=== PATIENT | female | born 2005 | race Caucasian/White ===

== ENCOUNTER 2024-12-08 10:15 | Emergency (ER) | payer OTHER, SELFPAY ==
[2024-12-08 10:26] VITALS: BP 133/93; PULSE 95; RESP 18; TEMP 36.7; O2SAT 100
--- NOTE | 2024-12-08 10:36 | ED.URI ---
HPI - URI/Sore Throat General Chief Complaint: Ear Stated Complaint: Sinus Pressure/Left Ear Problem/Chest Congestion Time Seen by Provider: 12/08/24 10:36 Source: patient, RN notes reviewed and old records reviewed Mode of arrival: ambulatory Limitations: no limitations History of Present Illness HPI Narrative: 19 [facility] complaints of sinus pressure and congestion for approximately 2 month. Patient states that for the past 2 weeks she has had sore throat and now ear pain with cough which increases at night. Patient reports facial pressure and some frontal headache. Patient reports that she has taken OTC nasal spray and has been using Sudafed for her sinus congestion. Patient reports that on Friday she had nausea and vomiting and did have fevers then which lasted into Friday but no fever since. MD elicited complaint: cough, sore throat, rhinorrhea, nasal congestion, sinus pain and other (headache) Onset (ago): week(s) (2) Severity: moderate Able to tolerate fluids by mouth: Yes Treatments prior to arrival: other (nasal spray, Sudafed) Related Data Allergies Allergy/AdvReac Type Severity Reaction Status Date / Time No Known Allergies Allergy Verified 12/08/24 10:31 Review of Systems Review of Systems: CONSTITUTIONAL: Reports malaise, chills, sweats, or fever on Friday and Friday none since EYES: Denies visual changes, redness, or discharge. ENT: Reports rhinorrhea, congestion, sinus pain,bilateral otalgia and positive sore throat. CARDIOVASCULAR: Denies chest pain, palpitations, or edema. RESPIRATORY: Reports cough increased at night.? Denies dyspnea. GASTROINTESTINAL: Denies abdominal pain, nausea, vomiting, diarrhea SKIN: Denies rash or itching. MUSCULOSKELETAL: Denies myalgia. NEUROLOGIC: reports frontal headache. All systems reviewed & are unremarkable except as noted in HPI and below PMFSH Social History Social History (Updated 12/10/24 @ 09:14 by Sondra Frazier NP) Smoking status: Never smoker Alcohol intake: current Alcohol use details: social Substance use type: does not use Living arrangements: with family Gender identity (if verbalized by the patient): Female Comments At time of signature, agree with nursing past medical, surgical, social and family history. There is no relevant family history pertinent to the presenting complaint Exam Narrative: GENERAL: Well-appearing, well-nourished, and in no acute distress. HEAD: Normocephalic EYES: PERRLA, conjunctivae clear ENT: Nares clear, turbinates edematous and erythematous, clear discharge sinus pressure with frontal headache. Mucous membranes moist. TM pearly rock with dull light reflex bilaterally; no tragal tenderness. Oropharynx erythematous without lesions. Tonsils not enlarged and without exudate, no drooling, no hoarseness, no trismus, uvula midline.post nasal drainage NECK: Supple. No lymphadenopathy CHEST: Clear to auscultation, breath sounds equal. No wheezing, rhonchi, rales, or stridor. No respiratory distress, speaks in full sentences. cough increased at night, SAO2 100%on room air HEART: Regular rate and rhythm. No murmur heard. SKIN: Warm, dry, no rash. NEURO: Alert and oriented x3. PSYCH: Normal mood and affect Course Course Emergency Course: Patient is aware of diagnosis, understands and agrees to treatment plan.? Anticipatory guidance given.? Patient agrees to follow-up as directed and is aware of reasons to seek care at the emergency department. Portions of this record may have been created with voice recognition software Level of Care: Express Care Visit Vital Signs Vital signs: Vital Signs Temperature 36.7 C 12/08/24 10:26 Pulse Rate 95 12/08/24 10:26 Respiratory Rate 18 12/08/24 10:26 Blood Pressure 133/93 H 12/08/24 10:26 Pulse Oximetry 100 12/08/24 10:26 Oxygen Delivery Room Air 12/08/24 10:26 Temperature 36.7 C 12/08/24 10:26 Pulse Rate 95 12/08/24 10:26 Respiratory Rate 18 12/08/24 10:26 Blood Pressure 133/93 H 12/08/24 10:26 Pulse Oximetry 100 12/08/24 10:26 Oxygen Delivery Room Air 12/08/24 10:26 Reviewed MDM - URI/Sore Throat MDM Narrative Medical decision making narrative: Differential diagnosis considered: Noland virus, strep pharyngitis, allergic rhinitis, upper respiratory tract infection, sinusitis, rhinosinusitis, nasopharyngitis. viral pharyngitis, otitis media, otitis externa, pneumonia, bronchitis, viral cough syndrome, viral syndrome, and influenza.? Exam findings show no acute concerns or changes; patient is non-toxic appearing and is in no distress.? Patient is appropriate for outpatient treatment and follow-up. Differential Diagnosis Differential diagnosis: Likely upper respiratory infection, otitis media, sinusitis, viral infection, pharyngitis and other Medical Records Attestation: I reviewed the patient's medical records. Lab Data Attestation: I reviewed the patient's lab results. Critical Care Time Critical Care Time Critical Care Time: No Discharge Plan Discharge Clinical Impression: Otalgia of both ears Sinusitis Qualifiers: Sinusitis location: pansinusitis Chronicity: acute Recurrence: not specified as recurrent Qualified Code(s): J01.40 - Acute pansinusitis, unspecified Patient Disposition: Home, Self-Care Condition: Stable Instructions: Sinusitis (ED) Additional Instructions: Increase fluids especially juices and water [id number] cough and cold medicine of your choice for your symptoms Zyrtec Claritin or Gabriela daily include decongestant such as Sudafed in a.m .nasal saline and gently blow nose and then use Flonase daily, may use nasal saline as needed Steroids as directed--take with food heat to the face 20-30 minutes 4-6 times a day for pain Salt water gargles, throat lozenges or throat sprays as desired Antibiotic as directed--finished the medication If your symptoms persist, change or worsen significantly before you can contact your personal physician then please, without delay, go to the emergency department for further evaluation. Follow-up with PCP in 7-10 days or sooner if needed Follow up with PCP soon in regards to your blood pressure which is elevated above threshold for referral. Blood pressure above 120/80 may indicate pre-hypertension. 133/93 Patient Language: Italian Prescriptions: New amoxicillin-pot clavulanate 875-125 mg tablet 1 tablet PO Q12H Qty: 20 0RF Rx Instructions: Recommend taking probiotic or eating activia yogurt while taking this medication, take with food methylprednisolone [Medrol (Edwin)] 4 mg tablets,dose pack See Rx Instructions .ROUTE .COMPLEX Qty: 21 0RF Rx Instructions: orally per package directions fluticasone propionate [Flonase Allergy Relief] 50 mcg/actuation spray,suspension 1 spray intranasal DAILY Qty: 16 0RF Rx Instructions: administer into each nostril Follow-up/Referrals: PHYSICIAN NOT ON STAFF,NONSTAFF [Primary Care Provider] - Time of Disposition: 10:59 Quality [place] Coma Scale Eyes: Open Verbal: Oriented and Alert Motor: Follows Commands [place] Coma Total Score: 15
--- OUTSIDE RECORDS SUMMARY | 2024-12-08 11:11 | XMS_ITS | Clinical Summary ---
Author Organization [facility] Address [address] [place] [address] Care Team Providers Care Combiner Operator Name Role Phone System, Provider Not In MD Primary Care Provider Unavailable Allergies Active Allergy Reactions Criticality Noted Date Comments Sulfa (Sulfonamide Antibiotics) Hives 06/28 Medications No known medications Active Problems Problem Noted Date Diagnosed Date Foot sprain, left, initial encounter 07/20/2023 Overview (07/20/2023): Will treat as sprain at this time. No fractures noted on xray. Will notify patient if radiology results show otherwise. Did not have walker boot in her size, so sent to [facility] to obtain walker boot. May take tylenol or ibuprofen as needed for pain/inflammation. May use heat or ice 20 mins on/20 mins off, may alternate for comfort. Follow up with primary care provider if no improvement in a week or so. Foot injury, left, initial encounter 07/20/2023 Social History Tobacco Use Types Packs/Day Years Used Date Smoking Tobacco: Never Passive Smoke Exposure: Never Smokeless Tobacco: Never Tobacco Cessation:Counseling Given: No Alcohol Use Standard Drinks/Week Comments Not Currently 0 (1 standard drink = 0.6 oz pur e alcohol) PHQ-2 Answer Date Recorded PHQ-2 Score 0 07/20/2023 Sex and Gender Information Value Date Recorded Sex Assigned at Not on file Gender Identity Not on file Sexual Orientation Not on file Last Filed Vital Signs Vital Sign Reading Time Taken Comments Blood Pressure 119/71 07/20/2023 1:02 PM CDT Pulse 70 07/20/2023 1:02 PM CDT Temperature 36.7 C (98.1 F) 07/20/2023 1:02 PM CDT Respiratory Rate 18 07/20/2023 1:02 PM CDT Oxygen Saturation 99% 07/20/2023 1:02 PM CDT Inhaled Oxygen Concentration - - Weight 58.8 kg (129 lb 9.6 oz) 07/20/2023 1:02 P M CDT Height 165.1 cm (5' 5 ) 07/20/2023 1:02 PM CDT Body Mass Index 21.57 07/20/2023 1:02 PM CDT Plan of Treatment Health Maintenance Due Date Last Done Comments Annual Wellness 2003 MMR Vaccines (1 of 1 - Stand vianca series) 01/22/2004 Varicella Vaccines (1 of 2 - 13+ 2-dose series) 01/22/2016 HPV Vaccines (1 - 3-dose series) 2018 Hepatitis B Vaccines (1 of 3 - 19+ 3-dose series) 2022 Td, Tdap Vaccines Adult 2022 Pap Smear 01/22/2024 Influenza Vaccination (#1) 2024 HIB Vaccines Aged Out No longer eligi ble based on patient's age to complete this topic Hepatitis A Vaccines Aged Out No long er eligible based on patient's age to complete this topic IPV Vaccines Aged Out No longer eligi ble based on patient's age to complete this topic Meningococcal Vaccines Aged Out No lo nger eligible based on patient's age to complete this topic Pneumococcal Vaccine: Pediat rics (0 to 5 Years) and At-Risk Patients (6 to 49 Years) Aged Out No longer eligible b ased on patient's age to complete this topic RSV Mab Nirsevimab (Beyfortu s) <20 months Aged Out No longer eligible b ased on patient's age to complete this topic Rotavirus Vaccines Aged Out No longer eligible based on patient's age to complete this topic Care Teams Combiner Operator Relationship Specialty Start Date End Date System, Provider Not In, [address] [place] [id number] PCP - General 03/01/12
== END 2024-12-08 11:02 | disposition home or self-care (01) ==
PROVIDERS: Emergency Provider Registered Nurse
DX: J01.40 Acute pansinusitis, unspecified (principal); H92.03 Otalgia, bilateral
CPT/HCPCS: 99213; G0463

== ENCOUNTER 2025-01-03 09:05 | Emergency (ER) | payer OTHER, SELFPAY ==
[2025-01-03 09:26] VITALS: BP 131/84; PULSE 95; RESP 18; TEMP 37.2; O2SAT 98
--- OUTSIDE RECORDS SUMMARY | 2025-01-03 10:03 | XMS_ITS | Clinical Summary ---
Author Organization [facility] Address [address] [place] [address] Care Team Providers Care Airline Operations Agent Name Role Phone System, Provider Not In [...] boot in her size, so sent to [facility] to obtain walker boot. May take tylenol [...] age to complete this topic Care Teams Airline Operations Agent Relationship Specialty Start Date End Date System, Provider Not In, [address] [place] [id number] PCP - General 03/01/12
--- NOTE | 2025-01-03 10:27 | ED_ITS ---
HPI - URI/Sore Throat General Chief Complaint: Upper Respiratory Infection Stated Complaint: throat/chest achesfever Time Seen by Provider: 01/03/25 10:25 Source: patient, RN notes reviewed and old records reviewed Mode of arrival: ambulatory Limitations: no limitations History of Present Illness HPI Narrative: 19 year old female presents to [facility] care with complaints of sore throat, body aches, fevers, headache,hard to breathe at times, cough and congestion for the past 3 days,Patient reports that she has had fevers up to 102F and has been taking Ibuprofen and also NyQuil for her symptoms. MD elicited complaint: fever, cough, sore throat and other (body aches, congestion feels hard to breath at times) Onset (ago): day(s) (3) Pain scale (0-10): 4 Able to tolerate fluids by mouth: Yes Treatments prior to arrival: ibuprofen and other (NyQuil) Related Data Allergies Allergy/AdvReac Type Severity Reaction Status Date / Time No Known Allergies Allergy Verified 01/03/25 19:43 Review of Systems Review of Systems: CONSTITUTIONAL: Reports malaise, chills, sweats, or fever. EYES: Denies visual changes, redness, or discharge. ENT: Reports rhinorrhea, congestion, sinus pain no otalgia and positive for sore throat. CARDIOVASCULAR: Denies chest pain, palpitations, or edema. RESPIRATORY: Reports cough.? Denies any acute dyspnea. GASTROINTESTINAL: Denies abdominal pain, nausea, vomiting, diarrhea SKIN: Denies rash or itching. MUSCULOSKELETAL: reports myalgia. NEUROLOGIC: Positive for headache. All systems reviewed & are unremarkable except as noted in HPI and below PMFSH Past Medical History Medical History (Updated 01/05/25 @ 10:56 by Sondra Frazier NP) Sinusitis Social History Social History (Updated 12/10/24 @ 09:14 by Sondra Frazier NP) Smoking status: Never smoker Alcohol intake: current Alcohol use details: social Substance use type: does not use Living arrangements: with family Gender identity (if verbalized by the patient): Female Comments At time of signature, agree with nursing past medical, surgical, social and family history. There is no relevant family history pertinent to the presenting complaint Exam Narrative: GENERAL:Ill-appearing, well-nourished, and in no acute distress. HEAD: Normocephalic EYES: PERRLA, conjunctivae clear ENT: Nares red clear, turbinates edematous and erythematous, clear discharge sinus pressure, Mucous membranes moist. TM pearly rock with dull light reflex bilaterally; no tragal tenderness. Oropharynx erythematous without lesions. Tonsils red enlarged and without exudate, no drooling, no hoarseness, no trismus, uvula midline.some post nasal drainage NECK: Supple. No lymphadenopathy CHEST: Clear to auscultation, breath sounds equal. No wheezing, rhonchi, rales, or stridor. No respiratory distress, speaks in full sentences.productive cough SAO2 98% on room air HEART: Regular rate and rhythm. No murmur heard. SKIN: Warm, dry, no rash. NEURO: Alert and oriented x3. PSYCH: Normal mood and affect Course Course Emergency Course: Patient is aware of diagnosis, understands and agrees to treatment plan.? Anticipatory guidance given.? Patient agrees to follow-up as directed and is aware of reasons to seek care at the emergency department. Portions of this record may have been created with voice recognition software Level of Care: Express Care Visit Vital Signs Vital signs: Vital Signs Temperature 37.2 C 01/03/25 09:26 Pulse Rate 95 01/03/25 09:26 Respiratory Rate 18 01/03/25 09:26 Blood Pressure 131/84 01/03/25 09:26 Pulse Oximetry 98 01/03/25 09:26 Oxygen Delivery Room Air 01/03/25 09:26 Temperature 37.2 C 01/03/25 09:26 Pulse Rate 95 01/03/25 09:26 Respiratory Rate 18 01/03/25 09:26 Blood Pressure 131/84 01/03/25 09:26 Pulse Oximetry 98 01/03/25 09:26 Oxygen Delivery Room Air 01/03/25 09:26 Reviewed MDM - URI/Sore Throat MDM Narrative Medical decision making narrative: Differential diagnosis considered: Noland virus, strep pharyngitis, allergic rhinitis, upper respiratory tract infection, sinusitis, rhinosinusitis, nasopharyngitis. viral pharyngitis, otitis media, otitis externa, pneumonia, bronchitis, viral cough syndrome, viral syndrome, and influenza.? Exam findings show no acute concerns or changes; patient is non-toxic appearing and is in no distress.? Patient is appropriate for outpatient treatment and follow-up. Differential Diagnosis Differential diagnosis: Likely upper respiratory infection, sinusitis, viral infection, influenza, pharyngitis and other (COVID, tonsillitis) Medical Records Attestation: I reviewed the patient's medical records. Lab Data Attestation: I reviewed the patient's lab results. Lab results narrative: Influenza A negative, Influenza B negative, COVID antigen negative, strep screen negative, culture sent Labs: Lab Results 01/03/25 Range/Units 09:56 POC Influenza A Ag Negative (Negative) POC Influenza B Ag Negative (Negative) POC SARS CoV-2 Ag Negative (Negative) POC Grp A Strep Screen Negative (Negative) reviewed Critical Care Time Critical Care Time Critical Care Time: No Discharge Plan Discharge Clinical Impression: Acute tonsillitis Qualifiers: Pharyngitis/tonsillitis etiology: unspecified etiology Qualified Code(s): J03.90 - Acute tonsillitis, unspecified Patient Disposition: Home, Self-Care Condition: Stable Instructions: Antibiotic Form, Tonsillitis (ED) Additional Instructions: . Take the entire course of antibiotics. Throw away your current toothbrush and begin using a new toothbrush in 48 hours in order to prevent re-infection. Sanitize all reusable water bottles . Do not share items with others. Salt water gargles may alleviate some of the throat discomfort. You can take Tylenol or ibuprofen per the package instructions for pain/fever. Your strep test today was negative. A throat culture will be sent to the laboratory for further testing. Zyrtec Claritin or Gabriela daily Recommend Delsym Robitussin cough syrup Monitor fevers every 4 hours If your symptoms persist, change or worsen significantly before you can contact your personal physician then please, without delay, go to the emergency department for further evaluation. Follow-up with PCP in 7-10 days or sooner if needed Follow up with PCP soon in regards to your blood pressure which is elevated above threshold for referral. Blood pressure above 120/80 may indicate pre- hypertension. 131/84 Patient Language: Polish Prescriptions: New amoxicillin 500 mg capsule 500 mg PO Q8H Qty: 30 0RF Rx Instructions: Take all doses of oral antibiotics No Action mupirocin [Centany] 2 % ointment 1 applic topical BID Qty: 22 0RF amoxicillin-pot clavulanate 875-125 mg tablet 1 tablet PO Q12H Qty: 20 0RF Rx Instructions: take all doses of oral antibiotic Follow-up/Referrals: PHYSICIAN NOT ON STAFF,NONSTAFF [Primary Care Provider] - Stand Alone Forms: Work/School Release IP Time of Disposition: 10:37 Quality [place] Coma Scale Eyes: Open Verbal: Oriented and Alert Motor: Follows Commands [place] Coma Total Score: 15
[2025-01-03 10:32] LABS: EDCOVIDSCREEN Negative (Negative); EDINFLUASCREEN Negative (Negative); EDINFLUBSCREEN Negative (Negative); EDSTREPNEGPOS1 Negative (Negative)
== END 2025-01-03 10:40 | disposition home or self-care (01) ==
PROVIDERS: Emergency Provider Registered Nurse
DX: J03.90 Acute tonsillitis, unspecified (principal); Z20.822 Contact with and (suspected) exposure to COVID-19
CPT/HCPCS: 87081; 87426; 87804; 87880; 99213; G0463

== ENCOUNTER 2025-01-03 19:21 | Emergency (ER) | payer OTHER, SELFPAY ==
[2025-01-03 19:28] VITALS: BP 112/71; PULSE 120; RESP 20; TEMP 37.9; O2SAT 98
--- OUTSIDE RECORDS SUMMARY | 2025-01-03 19:35 | XMS_ITS | Clinical Summary ---
Author Organization [facility] Address [address] [place] [address] Care Team Providers Care Automotive Fuel Injection Servicer Name Role Phone System, Provider Not In [...] boot in her size, so sent to [facility] to obtain walker boot. May take tylenol [...] age to complete this topic Care Teams Automotive Fuel Injection Servicer Relationship Specialty Start Date End Date System, Provider Not In, [address] [place] [id number] PCP - General 03/01/12
--- NOTE | 2025-01-03 19:45 | ED.GENADULT ---
HPI - General Adult General Chief complaint: Animal Bite Stated complaint: dog bite right leg ankle Time Seen by Provider: 01/03/25 19:32 Source: patient, RN notes reviewed and old records reviewed Mode of arrival: ambulatory Limitations: no limitations History of Present Illness HPI narrative: 19 year old female who presents to [facility] with complaints of sustaining dog bites to her right lower leg after and inner and outer ankle region breaking up her dog and another dog fighting just prior to arrival. Patient also has superficial scratch to the palm of her right hand and some discomfort to the palm of her left hand. Patient reports that tetanus is up to date. Patient was seen in clinic earlier today and started on Amoxicillin for illness and has been febrile.. MD complaint: dog bites to right medial and lateral ankle and right lower leg Onset (ago): minute(s) (just prior to arrival) Location: right and lower extremity Severity: moderate Treatments prior to arrival: none Related Data Allergies Allergy/AdvReac Type Severity Reaction Status Date / Time No Known Allergies Allergy Verified 01/03/25 19:43 Review of Systems Review of Systems: CONSTITUTIONAL: Reports fever, chills, or sweats. CARDIOVASCULAR: Denies chest pain, palpitations, or edema. RESPIRATORY: Denies cough or dyspnea. GASTROINTESTINAL: Denies abdominal pain, nausea, vomiting SKIN: Reports dog bites to the medial and lateral right ankle area and to distal right leg, superficial scratch right hand palm, and some pain to left palm MUSCULOSKELETAL: Denies myalgia. NEUROLOGIC: Denies headache, numbness All systems reviewed & are unremarkable except as noted in HPI and below PMFSH Past Medical History Medical History (Updated 01/05/25 @ 21:02 by Sondra Frazier NP) Tonsillitis Sinusitis Social History Social History (Updated 12/10/24 @ 09:14 by Sondra Frazier NP) Smoking status: Never smoker Alcohol intake: current Alcohol use details: social Substance use type: does not use Living arrangements: with family Gender identity (if verbalized by the patient): Female Comments At time of signature, agree with nursing past medical, surgical, social and family history. There is no relevant family history pertinent to the presenting complaint Exam Narrative: GENERAL: Ill-appearing, well-nourished, and in no acute distress. HEAD: Normocephalic, atraumatic. EYES: PERRLA and EOMI. ENT: Nares clear, clear rhinorrhea or epistaxis. Mucous membranes moist.TM's normal throat red with tonsils enlarged. NECK: Supple no lymphadenopathy. CHEST: Clear to auscultation. No respiratory distress.cough noted SAO2 98% on room air HEART: Regular rate and rhythm. No murmur heard. Normal peripheral pulses. ABDOMEN: Soft, nontender, nondistended, normal active bowel sounds. EXTREMITIES: Normal range of motion. No edema. SKIN: Warm, dry. Erythema,with multiple puncture wounds around right medial and lateral ankle and to distal right lower leg with some small amount of bleeding noted. tenderness to wounds noted no present bruising or acute warmth to tissue areas. wound care and dressings applied by nursing staff. superficial scratch to palm of right hand and some discomfort to left palm stated with no open tissue. NEURO: No focal deficits. Alert and oriented x3. Course Course Emergency Course: Patient is aware of diagnosis, understands and agrees to treatment plan. Anticipatory guidance given. Patient agrees to follow-up as directed and is aware of reasons to seek care at the emergency department. Portions of this record may have been created with voice recognition software Level of Care: Express Care Visit Vital Signs Vital signs: Vital Signs Temperature 37.9 C H 01/03/25 19:28 Pulse Rate 120 H 01/03/25 19:28 Respiratory Rate 20 01/03/25 19:28 Blood Pressure 112/71 01/03/25 19:28 Pulse Oximetry 98 01/03/25 19:28 Temperature 37.9 C H 01/03/25 19:28 Pulse Rate 120 H 01/03/25 19:28 Respiratory Rate 20 01/03/25 19:28 Blood Pressure 112/71 01/03/25 19:28 Pulse Oximetry 98 01/03/25 19:28 Reviewed Medical Decision Making Differential Diagnosis Differential Diagnosis: puncture wounds right lower leg and ankle, dog bites, abrasion right hand. wound care and evaluation Medical Records Medical records reviewed: Yes I reviewed the external patient's medical records. Vital Signs Vital Signs: Vital Signs Temperature 37.9 C H 01/03/25 19:28 Pulse Rate 120 H 01/03/25 19:28 Respiratory Rate 20 01/03/25 19:28 Blood Pressure 112/71 01/03/25 19:28 Pulse Oximetry 98 01/03/25 19:28 Temperature 37.9 C H 01/03/25 19:28 Pulse Rate 120 H 01/03/25 19:28 Respiratory Rate 20 01/03/25 19:28 Blood Pressure 112/71 01/03/25 19:28 Pulse Oximetry 98 01/03/25 19:28 Critical Care Time Critical Care Time Critical Care Time: No Discharge Plan Discharge Clinical Impression: Dog bite of multiple sites of right lower extremity Qualifiers: Encounter type: initial encounter Qualified Code(s): S81.851A - Open bite, right lower leg, initial encounter; W54.0XXA - Bitten by dog, initial encounter Patient Disposition: Home, Self-Care Condition: Stable Instructions: Antibiotic Form, Animal Bite (ED) Additional Instructions: Cleanse dog bites twice daily with liquid Dial soap or Hibiclens rinse pat dry apply mupirocin ointment and dressing of choice watch for any infection--redness, swelling, drainage Tylenol or Ibuprofen for any fever or pain follow up with PCP in 7-10 days for a wound check recheck if develop fever, chills, increasing symptom Go to the ER if your symptoms become worse of if ANY new symptoms develop Antibiotic to be changed to amoxicillin with clavulanate, patient was seen in the [facility] earlier today for tonsillitis Patient Language: [place] Verdean Prescriptions: New mupirocin [Centany] 2 % ointment 1 applic topical BID Qty: 22 0RF amoxicillin-pot clavulanate 875-125 mg tablet 1 tablet PO Q12H Qty: 20 0RF Rx Instructions: take all doses of oral antibiotic No Action amoxicillin 500 mg capsule 500 mg PO Q8H Qty: 30 0RF Rx Instructions: Take all doses of oral antibiotics Follow-up/Referrals: PHYSICIAN NOT ON STAFF,NONSTAFF [Primary Care Provider] - Time of Disposition: 19:57 Quality [place] Coma Scale Eyes: Open Verbal: Oriented and Alert Motor: Follows Commands [place] Coma Total Score: 15
== END 2025-01-03 20:00 | disposition home or self-care (01) ==
PROVIDERS: Emergency Provider Registered Nurse
DX: S91.031A Puncture wound without foreign body, right ankle, initial encounter (principal); S81.831A Puncture wound without foreign body, right lower leg, initial encounter; W54.0XXA Bitten by dog, initial encounter
CPT/HCPCS: 99213; G0463

== ENCOUNTER 2025-03-31 16:38 | Emergency (ER) | payer OTHER, SELFPAY ==
--- OUTSIDE RECORDS SUMMARY | 2025-03-31 16:40 | XMS_ITS | Clinical Summary ---
Author Organization [facility] Address [address] [place] [address] Care Team Providers Care Collar Pointer Name Role Phone System, Provider Not In [...] boot in her size, so sent to [facility] to obtain walker boot. May take tylenol [...] Answer Date Recorded PHQ-2 Score 0 07/20/2023 Comments Unknown Sex and Gender Information Value Date Recorded Sex Assigned at Not on file Legal Sex Female 7:25 PM CDT Gender Identity Not on file Sexual Orientation [...] P M CDT Height 165.1 cm (5' 5) 07/20/2023 1:02 PM CDT Body Mass Index [...] Adult 2022 Pap Smear 01/22/2024 Influenza Vaccination ([place] Ended) 2025 HIB Vaccines Aged Out No longer eligi [...] on patient's age to complete this topic Insurance [address] [place] [id number] [employer] Care Teams Collar Pointer Relationship Specialty Start Date End Date System, Provider Not In, [address] [place] [id number] PCP - General 03/01/12
[2025-03-31 16:52] VITALS: BP 137/94; PULSE 68; RESP 16; TEMP 36.7; O2SAT 100
[2025-03-31 17:25] VITALS: TEMP 36.9
--- NOTE | 2025-03-31 17:40 | ED.GENADULT ---
HPI - General Adult General Chief complaint: Unspecified Stated complaint: Sweating, hyperthermia,hypertension,no appetite Time Seen by Provider: 03/31/25 17:10 Source: patient and RN notes reviewed Mode of arrival: ambulatory Limitations: no limitations History of Present Illness HPI narrative: 20-year-old female presents Express Care with possible serotonin syndrome. Patient was sent from her psychiatry office for further evaluation. Patient reports having subjective hyperthermia and feels very hot. Patient also reports having hyperhidrosis throughout the night and sometimes during the day. Patient also states that her psychiatry office visit today she was told she had hyperreflexia. Patient also reports her blood pressures stated, she has decreased appetite, weight loss, intermittent tachycardia. Patient denies feeling hot or sweaty currently. Patient denies any chest pain, or difficulty breathing. Patient is taking sertraline for generalized anxiety disorder. Patient says she started sertraline back in January and she does not like the way it makes her feel. Patient also feels easily more agitated. Patient last took her sertraline last night. Patient denies overdosing on her medication reports taking her medication as directed. Related Data Home Medications ?Medication ?Instructions ?Recorded ?Confirmed ?Last Taken ?Type sertraline 50 mg tablet mg 03/31/25 Unknown History Allergies Allergy/AdvReac Type Severity Reaction Status Date / Time No Known Allergies Allergy Verified 03/31/25 17:04 Review of Systems Review of Systems: CONSTITUTIONAL: Denies fever, chills. Positive for sweats and subjective hyperthermia, decreased appetite and weight loss EYES: Denies visual changes, redness, or discharge. ENT: Denies rhinorrhea, congestion, sore throat, or otalgia. CARDIOVASCULAR: Denies chest pain, palpitations, or edema. Positive for intermittent tachycardia. RESPIRATORY: Denies cough or dyspnea. GASTROINTESTINAL: Denies abdominal pain, nausea, vomiting, or diarrhea. GENITOURINARY: Denies dysuria or hematuria. SKIN: Denies rash or itching. MUSCULOSKELETAL: Denies back pain, joint pain, or myalgia. NEUROLOGIC: Denies headache, numbness, or weakness. Positive for hyperreflexia PSYCHIATRIC: Positive for anxiety and agitation. Negative for depression. All other systems reviewed are negative, except as documented in HPI. [facility] Past Medical History Medical History Tonsillitis Sinusitis Social History Social History Smoking status: Never smoker Alcohol intake: current Alcohol use details: social Substance use type: does not use Living arrangements: with family Gender identity (if verbalized by the patient): Female Comments At the time of my signature, I reviewed and agree with the nursing past medical, surgical, social, and family history. There is no relevant family history pertinent to the patient complaint. Exam Narrative: GENERAL: This is a well-nourished, well-developed adult, in no apparent distress. They are non ill-appearing, nontoxic appearing. Patient is anxious and tearful in the room. No diaphoresis. Patient is calmed with reassurance HEAD: normocephalic, atraumatic. EYES: Sclera clear/white. Conjunctiva normal. Vision is grossly intact. Extraocular movements intact. Pupils PERRLA. No mydriasis. EARS: External ears normal, Hearing grossly intact. NOSE: External nose normal THROAT: Mucous membranes moist NECK: Neck supple, CARDIOVASCULAR: Regular rate and rhythm RESPIRATORY: Respiratory rate normal, respiratory effort nonlabored, no respiratory distress SKIN: warm, Dry, intact with no suspicious lesions or rash, good texture and turgor. No flush skin. NEURO: awake, alert, and oriented to person, place and time. No akathisia or tremor EXTREMITIES: No joint tenderness, effusion, or edema noted. No muscle rigidity. BACK: Nontender without deformity. Course Course Emergency Course: Portions of this record may have been created with voice recognition software Level of Care: Express Care Visit Vital Signs Vital signs: Vital Signs Temperature 98.1 F 03/31/25 16:52 Pulse Rate 03/31/25 16:52 Respiratory Rate 03/31/25 16:52 Blood Pressure 137/94 H 03/31/25 16:52 Pulse Oximetry 100 03/31/25 16:52 Oxygen Delivery Room Air 03/31/25 16:52 Temperature 98.1 F 03/31/25 16:52 Pulse Rate 68 03/31/25 16:52 Respiratory Rate 16 03/31/25 16:52 Blood Pressure 137/94 H 03/31/25 16:52 Pulse Oximetry 100 03/31/25 16:52 Oxygen Delivery Room Air 03/31/25 16:52 Reviewed Transfer Transfered to: [facility] [place] Transportation: Other (Private vehicle) Transfer rationale: Possible serotonin syndrome, patient requires higher level care Accepting physician: Ramone Medical Decision Making [facility] Narrative Medical decision making narrative: Patient's oral temperature is 98.1?. No significant evidence of serotonin syndrome. Given patient's concern of possible serotonin syndrome it is recommended the patient seek a higher level care and proceed immediately to the emergency department for further evaluation and management of her symptoms. Patient is agreeable to go to [facility] ER. Called over to [facility] ER and spoke with Mariah ACUÑA who is aware of this patient and Dr. Pack accepted this patient for transfer. Patient says she will go by private vehicle. Advised patient and proceed immediately to the emergency department. Differential Diagnosis Differential Diagnosis: Serotonin syndrome, adverse reaction of medication, panic attacks Vital Signs Vital Signs: Vital Signs Temperature 98.1 F 03/31/25 16:52 Pulse Rate 68 03/31/25 16:52 Respiratory Rate 16 03/31/25 16:52 Blood Pressure 137/94 H 03/31/25 16:52 Pulse Oximetry 100 03/31/25 16:52 Oxygen Delivery Room Air 03/31/25 16:52 Temperature 98.1 F 03/31/25 16:52 Pulse Rate 68 03/31/25 16:52 Respiratory Rate 16 03/31/25 16:52 Blood Pressure 137/94 H 03/31/25 16:52 Pulse Oximetry 100 03/31/25 16:52 Oxygen Delivery Room Air 03/31/25 16:52 Critical Care Time Critical Care Time Critical Care Time: No Discharge Plan Discharge Clinical Impression: Selective serotonin reuptake inhibitor (SSRI) causing adverse effect in therapeutic use Patient Disposition: Acute Care Hospital Condition: Stable Patient Language: Ivorian Prescriptions: No Action sertraline 50 mg tablet Follow-up/Referrals: Elva Alves [Other] Time of Disposition: 17:30
== END 2025-03-31 17:25 | disposition short-term general hospital (02) ==
DX: R50.2 Drug induced fever (principal); T43.225A Adverse effect of selective serotonin reuptake inhibitors, initial encounter; F41.9 Anxiety disorder, unspecified; Z79.899 Other long term (current) drug therapy
CPT/HCPCS: 99212; G0463